=== PATIENT | male | born 1965 | race African-American/Black ===

== ENCOUNTER 2016-05-23 12:56 | Emergency (ER) | payer OTHER ==
[~2016-05-23] VITALS: Ht 175.3 cm; Wt 83.9 kg
--- NOTE | 2016-05-23 16:21 | ED SKIN/ALLERGY COMPLAINT ---
History of Present Illness General Chief Complaint: General Adult Stated Complaint: PT C/O LUMP ON BACK OF NECK "KEEPS GETTING BIGGER" Source: patient Exam Limitations: no limitations Vital Signs & Intake/Output Vital Signs & Intake/Output Vital Signs Date Time Temp Pulse Resp B/P Pulse O2 O2 Flow FiO2 Ox Delivery Rate 05/23 1738 98.2 76 18 139/82 97 Room Air 05/23 1306 98.0 72 20 143/87 98 Room Air Allergies Coded Allergies: No Known Allergies (05/23/16) Reconcile Medications No Known Home Medications Triage Note: PT PRESENTS TO ER C/O OF A LUMP ON BACK OF NECK. PT STATES HE FIRST NOTICED THE LUMP 6 MONTHS AGO AND IT HAS BEEN GETTING BIGGER SO HE WANTS TO GET CHECKED OUT. PT DENIES ANY PAIN TO NECK. Triage Nurses Notes Reviewed? yes HPI: Patient is a 50 year old male presents complaining of a "lump" to the back of his neck x 1 year. 2 months ago a second "lump" developed. Over the past 2-3 months the initial lump has been growing. Pain is 0 out of 10. Patient has approximately [id number] history of smoking. Denies any significant family history. Patient denies pain, night sweats, change in weight, shortness of breath, fevers. Past History Travel History Traveled to [place] past 21 day No Medical History Any Pertinent Medical History? none Neurological: NONE EENT: NONE Cardiovascular: NONE Respiratory: NONE Hepatic: NONE Surgical History Surgical History: non-contributory Psychosocial History What is your primary language Frisian Tobacco Use: Current Daily Use Daily Tobacco Use Amount/Type: => 5 Cigarettes daily Family History Hx Contributory? No Review of Systems Review of Systems Constitutional: Denies: chills, fever, unexplained weight loss. EENTM: Denies: ear pain, throat pain. Respiratory: Denies: cough, short of breath. Cardiovascular: Denies: chest pain. GI: Denies: abdominal pain, nausea, vomiting. Genitourinary: Reports: no symptoms. Musculoskeletal: Denies: back pain, neck pain. Skin: Reports: no symptoms. Neurological/Psychological: Reports: no symptoms. Hematologic/Endocrine: Reports: no symptoms. Immunologic/Allergic: Denies: splenectomy. Physical Exam Physical Exam General Appearance: well developed/nourished, alert, awake Head: atraumatic, normal appearance Eyes: Bilateral: normal appearance, PERRL, EOMI. Ears, Nose, Throat: normal pharynx, normal ENT inspection, hearing grossly normal Neck: 2 cm mobile nontender nodular density posterior mid neck to the right of midline. 1 cm mobile nodule posterior neck just to the left of midline., no anterior cervical lymphadenopathy Respiratory: normal breath sounds, chest non-tender, no respiratory distress, lungs clear Cardiovascular: regular rate/rhythm Back: normal inspection, normal range of motion Extremities: normal inspection, normal capillary refill, normal range of motion, no edema Neurologic/Psych: no motor/sensory deficits, awake, alert, oriented x 3, normal gait, normal mood/affect Skin: intact, normal color, warm/dry Progress Differential Diagnosis: abscess/cellulitis, lymphadenopathy, malignancy, lipoma, sebaceous cyst Plan of Care: Orders Procedure Date/time Status US-SOFT TISSUES OF HEAD & NECK 05/23 1631 Active 1730: Patient reported to nurse that he did not want to wait for ultrasound. Patient provided with information to establish a primary doctor for outpatient follow up. Patient nontoxic appearing, no signs of sepsis, appears stable for discharge with outpatient follow up. (ANEUDY SINGER,KAREN) Departure Departure Disposition: HOME OR SELF CARE Condition: Stable Clinical Impression Primary Impression: Mass of neck Referrals: JOSE MARTIN KEVIN MD PATIENT HAS NO PRIMARY CARE DR (PCP/Family) CAMILA MONDRAGON,CED Yanez Additional Instructions: Follow up with Dr. Kevin(primary care doctor). You may contact Dr. Hu(GI doctor) to arrange for your screening colonoscopy. Departure Forms: Customer Survey General Discharge Information Prescriptions: Current Visit Scripts No Known Home Medications
[2016-05-23 17:38] VITALS: BP 139/82
== END 2016-05-23 17:39 ==
LOC: ERH 12:56
DX: R22.1 Localized swelling, mass and lump, neck (principal)

== ENCOUNTER → 2016-07-26 | Day surgery (SDC) | payer OTHER ==
[~2016-07-26] VITALS: Ht 175.3 cm; Wt 79.4 kg
--- NOTE | 2016-07-28 19:07 | Operative Report ---
Operative/Inv Procedure Report Surgery Date: 07/26/16 Name of Procedure: Excision of 2 separate subfascial posterior neck lipomas one measuring 3 cm one measuring 2 cm Pre-Operative Diagnosis: 2 posterior neck masses Post-Operative Diagnosis: Same probably lipomas Estimated Blood Loss: scant Surgeon/Floor And Wall Applier Liquid: ABIDA MONDRAGON,ROSE SINGER Anesthesia: general endotracheal tube Operative/Procedure Note Note: Patient was placed on the OR table in the supine position. After successful induction of general anesthesia, we were able to reposition him with a left side down laterally propping up his head these 2 soft masses were posteriorly in the neck one was a little more lateral to the right and one was more midline lower, near the nape. It would be too long of an incision to encompass both with one. So we approach the lateral one first injected local anesthetic then made the incision following the skin lines about 2 cm long made incision with a 15 blade deepened it to the subcutaneous layer both lipomas were deep subfascial this will took time it was lobulated we made sure we removed it in one piece at the from the fascia and some muscle laterally and measured about 2 cm after complete removal were irrigated checked for hemostasis were careful to avoid injury to surrounding nerves and vessels closed that in layers using some dermal 3-0 Vicryl sutures interrupted then a running subcuticular for the skin itself. Then we turned our attention little more medial lower for the second mass was a little larger flatter we aimed our incision this was about 3 cm long injected local anesthetic then made the incision dissected out this lipoma and measured 3 cm also subfascial at the from the fascia and some muscle fibers deep incisions are by about 4 cm. We closed in layers again interrupted 3-0 Vicryl's subdermally and a running subcuticular 4-0 Biosyn suture for the skin itself both incisions were then covered with Mastisol Steri- Strips Telfa and Tegaderm. Lap and sponge and sponge counts: correct Wound expectancy: Clean IV fluids: crystalloid Complications: none Patient tolerated the procedure well was awakened and extubated and returned to the recovery room in satisfactory condition. Wound expectancy: Clean IV fluids: crystalloid Complications: none Patient tolerated the procedure well was awakened and extubated and returned to the recovery room in satisfactory condition.
== END ==
LOC: STS 01:06
DX: D21.0 Benign neoplasm of connective and other soft tissue of head, face and neck (principal); M92.50 Unspecified juvenile osteochondrosis of tibia and fibula
CPT/HCPCS: 88304; J0690; J2250